=== PATIENT | female | born 1975 | race African-American/Black ===

== ENCOUNTER 2019-04-06 15:51 | Emergency (ER) | payer SELFPAY ==
[2019-04-06 15:58] VITALS: BP 122/78; PULSE 94; TEMP 97.3; BMI 31.2
[2019-04-06] MEDS ORDERED: predniSONE 10 MG TABLET (UD) PO ONE (16:44)
[2019-04-06] MEDS ORDERED: predniSONE 10 MG TABLET (UD) ONE (16:46)
--- NOTE | 2019-04-06 16:52 | PDOC ---
History of Present Illness - General Chief Complaint: Back Pain Stated Complaint: RT LEG AND FOOT PAIN History Source: Patient Exam Limitations: No Limitations - History of Present Illness Initial Comments: 04/06/19 16:47 Patient is a 44 year old 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 Patient states that she had an MRI done in January which shows a tumor however she is opted not to have operation. States that she remove from [place] just recently and has not had an opportunity to get herself set up with pain management. She is here for treatment of her pain. Requesting to have a first prescription for a few days for pain until she can get to the clinic next week. She denies any bowel or bladder incontinence, saddle anesthesia. PMD: [place]l PMHX: as above PSHX: neg PSOCHX: unknown ALL: NKDA GENERAL/CONSTITUTIONAL: [No fever or chills. No weakness. No weight change.] HEAD, EYES, EARS, NOSE AND THROAT: [No change in vision. No ear pain or discharge. No sore throat.] CARDIOVASCULAR: [No chest pain or shortness of breath.] RESPIRATORY: [No cough, wheezing, or hemoptysis.] GASTROINTESTINAL: [No nausea, vomiting, diarrhea or constipation. No rectal bleeding.] GENITOURINARY: [No dysuria, frequency, or change in urination.] MUSCULOSKELETAL: [(+) joint or muscle swelling or pain. No neck or back pain.] SKIN AND BREASTS: [No rash or easy bruising.] NEUROLOGIC: [No headache, vertigo, loss of consciousness, or loss of sensation.] PSYCHIATRIC: [No depression or anxiety.] ENDOCRINE: [No increased thirst. No abnormal weight change.] HEMATOLOGIC/LYMPHATIC: [No anemia, easy bleeding, or history of blood clots.] ALLERGIC/IMMUNOLOGIC: [No hives or skin allergy. No latex allergy.] GENERAL: [The patient is awake, alert, and fully oriented, in no acute distress. ] HEAD: [Normal with no signs of trauma.] EYES: [Pupils equal, round and reactive to light, extraocular movements intact, sclera anicteric, conjunctiva clear.] ENT: [Ears normal, nares patent, oropharynx clear without exudates. Moist mucous membranes.] NECK: [Normal range of motion, supple without lymphadenopathy, JVD, or masses.] LUNGS: [Breath sounds equal, clear to auscultation bilaterally. No wheezes, and no crackles.] HEART: [Regular rate and rhythm, normal S1 and S2 without murmur, rub.] ABDOMEN: [Soft, nontender, normoactive bowel sounds. No guarding, no rebound. No masses.] EXTREMITIES: [Normal range of motion, no edema. No clubbing or cyanosis. No cords, erythema, or tenderness.] NEUROLOGICAL: [Cranial nerves II through XII grossly intact. Normal speech, antalgic gait, 5/5 strength, straight leg raise to 45 degrees.] PSYCH: [Normal mood, normal affect.] SKIN: [Warm, Dry, normal turgor, no rashes or lesions noted.] Past History - Past Medical History Allergies/Adverse Reactions: Allergies Allergy/AdvReac Type Severity Reaction Status Date / Time No Known Allergies Allergy Verified 04/06/19 15:58 COPD: No - Psycho Social/Smoking Cessation Hx Smoking History: Never smoked *Physical Exam - Vital Signs Last Vital Signs Temp Pulse Resp BP Pulse Ox 97.3 F L 94 H 18 122/78 99 04/06/19 15:56 04/06/19 15:56 04/06/19 15:56 04/06/19 15:56 04/06/19 15:56 Medical Decision Making - Medical Decision Making 04/06/19 16:47 Patient is a 44 year old 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 Patient states that she had an MRI done in January which shows a tumor however she is opted not to have operation. States that she remove from [place] just recently and has not had an opportunity to get herself set up with pain management. She is here for treatment of her pain. Requesting to have a first prescription for a few days for pain until she can get to the clinic next week. She denies any bowel or bladder incontinence, saddle anesthesia. Patient with chronic pain given 1 Percocet and 10 mg of prednisone in the emergency room. She has refused Toradol, tramadol. Patient was advised that I will not be sending a prescription for narcotics to the pharmacy she needs to follow-up in her clinic tomorrow. Patient was requested to sit in the waiting room looked for the patient to reevaluate and was found to have eloped. Discharge - Discharge Information Problems reviewed: Yes Clinical Impression/Diagnosis: Chronic lower back pain Qualifiers: Back pain laterality: unspecified Sciatica presence: without sciatica Qualified Code(s): M54.5 - Low back pain Condition: Stable Disposition: ELOPED - Follow up/Referral - Patient Discharge Instructions Patient Printed Discharge Instructions: DI for Low Back Pain Additional Instructions: Your Discharge Instructions: You must call primary care physician within 24 hours to arrange follow-up. Return to the Emergency Department with any new, persistent or worsening symptoms, for fever, chills, SOB, dizziness or any other concerning changes that may occur. You must follow-up with pain management for further treatment. - Post Discharge Activity
== END 2019-04-06 17:06 | disposition left against medical advice (07) ==
LOC: JER 15:51
DX: M54.5 Low back pain (principal); D16.6 Benign neoplasm of vertebral column; Q96.9 Turner's syndrome, unspecified
CPT/HCPCS: 99283-25